=== PATIENT | female | born 1965 | race Caucasian/White ===

== ENCOUNTER 2016-12-07 12:41 | Inpatient (IN) ==
[2016-12-07] MEDS ORDERED: Ipratropium/Albuterol Neb 3 ML IH ONE (12:45)
[2016-12-07] MEDS ORDERED: methylPREDNISolone 125 MG/2 ML VIAL IVP ONE (12:45)
--- NOTE | 2016-12-07 12:48 | Emergency Department Note ---
Disposition Clinical Impression: Community acquired pneumonia, Hypoxia COPD (chronic obstructive pulmonary disease) Qualifiers: COPD type: unspecified COPD Qualified Code(s): J44.9 - Chronic obstructive pulmonary disease, unspecified Disposition: Admitted As Inpatient Condition: Fair Referrals: NO,PCP [Primary Care Provider] - Forms: ED Satisfaction Letter Time of Disposition: 14:04 SOB HPI - General Chief Complaint: ED Shortness of Breath/Dyspnea Stated Complaint: tracie Time Seen by Provider: 12/07/16 12:45 Source: patient, EMS Mode of arrival: EMS Limitations: no limitations Nursing Notes Reviewed: Yes Vital Signs Reviewed: Yes - History of Present Illness 51-year-old history COPD comes in with increasing shortness of breath. The squad members on arrival states his pulse ox was in the 80s they gave her breathing treatment and put her on a nonrebreather and she came up to the mid 90s. Pt Subjective Complaint: shortness of breath Onset (ago): day(s) Context: recent illness Severity: moderate Consistency/Duration: constant Improves with: nothing Worsens with: exertion Known history of: COPD Associated symptoms: Reports: cough, wheezing Treatment prior to arrival: oxygen, bronchodilator Cough present: Yes Cough Description: Involuntary Cough Frequency: Intermittent - Related Data Home Medications Medication Instructions Recorded Confirmed Albuterol Sulfate [Ventolin Hfa] 2 puff IH Q4H 08/03/15 08/03/15 Clopidogrel [Plavix] 75 mg PO DAILY 08/03/15 08/03/15 Fluticasone/Salmeterol [Advair 1 puff IH BID 08/03/15 08/03/15 500-50 Diskus] Lansoprazole [Prevacid] 30 mg PO DAILY 08/03/15 08/03/15 Levothyroxine Sodium [Tirosint] 50 mcg PO DAILY 08/03/15 08/03/15 Rosuvastatin [Crestor] 40 mg PO DAILY 08/03/15 08/03/15 Previous Rx's Medication Instructions Recorded Cefdinir [Omnicef] 300 mg PO BID #14 capsule 08/06/15 Cholecalciferol (Vitamin D3) 5,000 unit PO DAILY #30 capsule 08/06/15 [Dialyvite Vitamin D] Levofloxacin [Levaquin] 750 mg PO DAILY #5 tablet 08/06/15 Oxygen 2 l IN CONT 30 Days 02/17/16 Allergies Allergy/AdvReac Type Severity Reaction Status Date / Time Opioids - Morphine Analogues Allergy See Verified 12/07/16 12:48 Comments Sulfa (Sulfonamide Allergy Hives Verified 07/21/15 11:12 Antibiotics) All systems ED: reviewed and negative except as stated. Constitutional: Denies: fever, chills, weakness, weight change Eyes: Denies: eye pain, eye discharge, vision change ENT ED: Denies: ear pain, throat pain, dental pain, hearing loss, epistaxis, congestion, dysphagia Cardiovascular: Denies: chest pain, palpitations, dyspnea on exertion, edema, syncope Respiratory: Reports: cough, dyspnea, wheezes. Denies: hemoptysis, stridor Gastrointestinal: Denies: abdominal pain, nausea, vomiting, diarrhea, constipation, hematemesis, melena, hematochezia Genitourinary: Denies: dysuria, frequency, hematuria, discharge Musculoskeletal: Denies: back pain, neck pain, arthralgia, myalgia Integumentary: Denies: rash, abrasion, lesions Neurological: Denies: headache, weakness, numbness, paresthesias, confusion, abnormal gait, vertigo Psychiatric: Denies: anxiety, depression, suicidal thoughts, homicidal thoughts , auditory hallucinations, visual hallucinations Endocrine: Denies: fatigue Hematological/Lymphatic: Denies: easy bleeding, easy bruising Allergic/Immunologic: Denies: facial swelling, urticaria Past Medical History - Past Medical History Medical history: Reports: COPD, coronary artery disease, hyperlipidemia Psychiatric history: Reports: no psych history 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 - Social History Smoking Status: Former smoker Smokeless Tobacco Status: No Alcohol use: Reports: none Drug use: Reports: none Physical Exam - General Limitations: no limitations General appearance: alert, in no apparent distress - Head Head exam: atraumatic, normocephalic, normal inspection - Eye Eye exam: Present: normal appearance, PERRL, EOMI - ENT ENT exam: normal exam, normal oropharynx, mucous membranes moist - Neck Neck exam: Present: normal inspection, full ROM, trachea midline - Chest Chest inspection: Present: normal inspection, symmetric chest wall rise - Respiratory Respiratory exam: Present: respiratory distress, wheezes, accessory muscle use, prolonged expiratory phase - Cardiovascular Cardiovascular exam: Present: regular rate, normal rhythm, normal heart sounds - Abdominal Exam Abdominal exam: Present: soft, Non-Tender. Absent: tenderness, distention, guarding, rebound, rigidity - Extremities Exam Extremities exam: Present: normal inspection, full ROM. Absent: tenderness, pedal edema - Expanded Lower Extremity Exam Neurovascular/Tendon exam: Absent: motor deficit, sensory deficit, tendon deficit Gait: observed and normal - Back Exam Back exam: Present: normal inspection, full ROM. Absent: tenderness - Neurological Exam Neurological exam: Present: alert, oriented X3 - Psychiatric Psychiatric exam: Present: normal affect, normal mood - Skin Skin exam: Present: warm, dry, intact, normal color Course - Reevaluation(s) Reevaluation #1: 51-year-old comes in with cough and shortness of breath history COPD patient required several treatments steroids so to improve somewhat. Chest x-ray shows a questionable linear pneumonia. Patient will be admitted IV antibiotics treatments. Time: 14:03 - Consultations Consultation #1: Accepted by Dr. Treviño Time: 14:04 Vital Signs Temperature 98.2 F 12/07/16 12:42 Pulse Rate 109 12/07/16 12:42 Respiratory Rate 26 12/07/16 12:42 Blood Pressure 127/80 12/07/16 12:42 O2 Sat by Pulse Oximetry 93 12/07/16 12:42 Temperature 98.2 F 12/07/16 12:42 Pulse Rate 109 12/07/16 12:42 Respiratory Rate 26 12/07/16 13:18 Blood Pressure 127/80 12/07/16 12:42 O2 Sat by Pulse Oximetry 96 12/07/16 13:18 Oxygen Delivery Oxygen Delivery Nasal Cannula Shortness of Breath/Dyspnea - Lab Data Lab results reviewed: Yes I reviewed the patient's lab results. Result diagrams: 12/07/16 13:28 12/07/16 13:28 Lab Results 12/07/16 12/07/16 12/07/16 Range/Units 13:00 13:28 13:28 WBC 11.8 H (4.3-11.1) K/mcL RBC 4.23 (3.82-4.97) M/mcL Hgb 11.3 L (11.5-15.4) g/dL Hct 36.9 (35.3-44.9) % MCV 87.2 (83.0-100.0) fL MCH 26.7 L (28.0-33.3) pg MCHC 30.6 L (31.6-35.5) g/dL RDW 16.1 H (11.5-14.5) % Plt Count 336 (140-400) K/mcL MPV 10.1 (9.4-12.4) fL Immature Gran % 0.4 (0-4) % Seg Neutrophils % 78.2 % Lymphocytes % 11.0 % Monocytes % 9.8 % Eosinophils % 0.3 % Basophils % 0.3 % Neutrophils # 9.2 H (1.6-8.9) K/mcL Lymphocytes # 1.3 (0.6-4.6) K/mcL Monocytes # 1.2 (0.0-1.3) K/mcL Eosinophils # 0.0 (0.0-0.6) K/mcL Basophils # 0.0 (0.0-0.2) K/mcL ABG pH 7.40 (7.32-7.45) pH Units ABG pCO2 52 H (35-45) mmHg ABG pO2 58 L (85-104) mmHg ABG HCO3 32.2 H (21-27) mEQ/L ABG Total CO2 33.8 H (20-26) mEq/L ABG O2 Saturation 90 L (95-98) % ABG Base Excess 6.2 H (-2.0 to 3.0) mEq/L Blood Gas Modality [place] Inspired O2 32 % Sodium 138 (136-145) mEq/L Potassium 3.9 (3.5-4.5) mEq/L Chloride 100 (98-109) mEq/L Carbon Dioxide 29 (19-29) mEq/L BUN 11 (7-20) mg/dL Creatinine 0.57 (0.57-1.11) mg/dL Est GFR ( Amer) > 60 (> 60) Est GFR (Non-Af Amer) > 60 (> 60) BUN/Creatinine Ratio 19 (6-26) Glucose 115 H (70-99) mg/dL Calculated Osmolality 286 (280-300) Lactic Acid (0.5-2.2) mmol/L Calcium 9.8 (8.6-10.8) mg/dL Troponin I (0-0.03) ng/mL B-Natriuretic Peptide (0-100) pg/mL 06/20/17 06/20/17 06/20/17 Range/Units 13:28 13:28 13:28 WBC (4.3-11.1) K/mcL RBC (3.82-4.97) M/mcL Hgb (11.5-15.4) g/dL Hct (35.3-44.9) % MCV (83.0-100.0) fL MCH (28.0-33.3) pg MCHC (31.6-35.5) g/dL RDW (11.5-14.5) % Plt Count (140-400) K/mcL MPV (9.4-12.4) fL Immature Gran % (0-4) % Seg Neutrophils % % Lymphocytes % % Monocytes % % Eosinophils % % Basophils % % Neutrophils # (1.6-8.9) K/mcL Lymphocytes # (0.6-4.6) K/mcL Monocytes # (0.0-1.3) K/mcL Eosinophils # (0.0-0.6) K/mcL Basophils # (0.0-0.2) K/mcL ABG pH (7.32-7.45) pH Units ABG pCO2 (35-45) mmHg ABG pO2 (85-104) mmHg ABG HCO3 (21-27) mEQ/L ABG Total CO2 (20-26) mEq/L ABG O2 Saturation (95-98) % ABG Base Excess (-2.0 to 3.0) mEq/L Blood Gas Modality Inspired O2 % Sodium (136-145) mEq/L Potassium (3.5-4.5) mEq/L Chloride (98-109) mEq/L Carbon Dioxide (19-29) mEq/L BUN (7-20) mg/dL Creatinine (0.57-1.11) mg/dL Est GFR ( Amer) (> 60) Est GFR (Non-Af Amer) (> 60) BUN/Creatinine Ratio (6-26) Glucose (70-99) mg/dL Calculated Osmolality (280-300) Lactic Acid 1.8 (0.5-2.2) mmol/L Calcium (8.6-10.8) mg/dL Troponin I 0.01 (0-0.03) ng/mL B-Natriuretic Peptide 43 (0-100) pg/mL - Radiology Data Radiology results reviewed: Yes I reviewed the patient's radiology results. Chest X-Ray 12/07/16 12:45 IMPRESSION: 1. Severe emphysematous changes are again noted. 2. Bilateral linear infiltrates could represent pneumonia. D/ / 12/07/2016 13:41:46 Raul Isaac MD / [email or web address] Interpreting Provider: Raul Isaac MD - EKG Data EKG attestation: Yes I reviewed and interpreted this EKG. EKG shows normal: Reports: sinus rhythm Rate: Reports: tachycardia Rhythm: Reports: NSR [place]/QRS: Reports: IVCD Interpretation: Reports: no acute changes
[2016-12-07 13:05] LABS: ABG Base Excess 6.2 mEq/L (-2.0 to 3.0); ABG HCO3 32.2 mEQ/L (21-27); ABG Oxygen Saturation 90 % (95-98); ABG PCO2 52 mmHg (35-45); ABG PO2 58 mmHg (85-104); ABG TCO2 33.8 mEq/L (20-26)
[2016-12-07 13:07] LABS: Blood Gas FiO2 32 %
[2016-12-07 13:41] LABS: Basophils % 0.3 %; Eosinophils % 0.3 %; Hematocrit 36.9 % (35.3-44.9); Hemoglobin 11.3 g/dL (11.5-15.4); Immature Granulocytes % 0.4 % (0-4); Lymphocytes # 1.3 K/mcL (0.6-4.6); Mean Corpuscular HGB Conc 30.6 g/dL (31.6-35.5); Mean Corpuscular Hemoglobin 26.7 pg (28.0-33.3); Mean Corpuscular Volume 87.2 fL (83.0-100.0); Mean Platelet Volume 10.1 fL (9.4-12.4); Monocytes # 1.2 K/mcL (0.0-1.3); Monocytes % 9.8 %; Neutrophils # 9.2 K/mcL (1.6-8.9); Platelet Count 336 K/mcL (140-400); Red Blood Count 4.23 M/mcL (3.82-4.97); Red Cell Distribution Width 16.1 % (11.5-14.5); Segmented Neutrophils % 78.2 %
[2016-12-07 13:57] LABS: BUN/Creatinine Ratio 19 (6-26); Blood Urea Nitrogen 11 mg/dL (7-20); Calcium 9.8 mg/dL (8.6-10.8); Carbon Dioxide 29 mEq/L (19-29); Chloride 100 mEq/L (98-109); Glucose 115 mg/dL (70-99); Osmolality,Calculated 286 (280-300); Potassium 3.9 mEq/L (3.5-4.5); Sodium 138 mEq/L (136-145); eGFR For African Americans > 60 (> 60); eGFR For Non-African Americans > 60 (> 60)
[2016-12-07] MEDS ORDERED: Levofloxacin 750 MG/150 ML 750 MG/150 ML BAG IVPB ONE (14:00)
[2016-12-07] MEDS ORDERED: Acetaminophen 325 MG TABLET PO PRN (14:42)
[2016-12-07] MEDS ORDERED: Naloxone 0.4 MG/ML INJ IVP PRN (14:42)
[2016-12-07] MEDS ORDERED: Ipratropium/Albuterol Neb 3 ML IH PRN (14:43)
--- NOTE | 2016-12-07 16:09 | Internal Med History&Physical ---
<Juana Treviño - Last Filed: 12/07/16 18:32> Date of Encounter: 12/07/16 Time of Encounter: 15:45 Internal Medicine - H&P: HPI History of present illness: Ms. Maldonado is a 51 year old female Internal Medicine - H&P: Meds Albuterol Sulfate [Ventolin Hfa] 2 puff IH Q4H 08/03/15 [History] Clopidogrel [Plavix] 75 mg PO DAILY 08/03/15 [History] Lansoprazole [Prevacid] 30 mg PO DAILY 08/03/15 [History] Levothyroxine Sodium [Tirosint] 50 mcg PO DAILY 08/03/15 [History] Rosuvastatin [Crestor] 40 mg PO DAILY 08/03/15 [History] Cholecalciferol (Vitamin D3) [Dialyvite Vitamin D] 5,000 unit PO DAILY #30 capsule 08/06/15 [Rx] Oxygen 2 l IN CONT 30 Days 08/06/15 [Rx] Aspirin [Lo-Dose Aspirin EC] 81 mg PO DAILY 12/07/16 [History] Benzonatate [Tessalon] 100 mg PO Q4H PRN 12/07/16 [History] Enoxaparin [Lovenox] 40 mg SQ Q12HR 12/07/16 [History] Escitalopram [Lexapro] 20 mg PO DAILY 12/07/16 [History] Ipratropium/Albuterol Neb [Duoneb] 3 ml IH Q6HR 12/07/16 [History] LORazepam [Ativan] 0.5 mg PO TID 12/07/16 [History] Mometasone/Formoterol [Dulera 200 Mcg/5 Mcg Inhaler] 2 puff IH BID 12/07/16 [ History] Allergies Opioids - Morphine Analogues Allergy (Verified 12/07/16 12:48) See Comments Sulfa (Sulfonamide Antibiotics) Allergy (Verified 07/21/15 11:12) Hives All Systems PM: A 10-system review of systems was performed and is negative for pertinent findings except as documented above in the HPI. - Constitutional Vitals: Temp Pulse Resp BP Pulse Ox 97.6 F 106 18 110/70 91 12/07/16 15:22 12/07/16 15:22 12/07/16 17:26 12/07/16 15:22 12/07/16 17:26 Internal Med - H&P Results - Labs CBC & Chem 7: 12/07/16 13:28 12/07/16 17:25 Labs: BMP 12/07/16 17:25 Glucose 120 H Liver Function 12/07/16 Range/Units 17:25 Total Bilirubin 0.4 (0.2-1.2) mg/dL - Attending Attestation I examined this patient and my medical decision-making was reviewed with the nurse practitioner. I agree with the documented history of present illness, review of systems, past medical, surgical social and family histories and examination findings, disposition and treatment plan as described above except to any changes set forth below. 51-year-old female patient with history of COPD, prior PE presented to the ER with complaints of shortness of breath worsening over the past week. She had previously been diagnosed with pneumonia about 2 weeks back and completed a 10 day course with amoxicillin. She continued to feel 6 and so she came to the ER. She is on chronic home oxygen for the past year but despite that was feeling increasingly short of breath. She was treated with bronchodilators and IV Levaquin in the ER and is starting to feel better. She denies any fever or chills. She is been having productive cough with yellowish sputum. No hemoptysis. On examination, patient chest is rhonchorous, heart sounds are within normal limits, patient is tachycardic. Sepsis related to community-acquired pneumonia with possible strep pneumo/ atypical organisms: Failed outpatient treatment with amoxicillin. We will treat with IV Levaquin. O2 supplementation. Trend lactate. IV hydration. Follow cultures. High risk for complications. COPD exacerbation: Continue O2 supplementation. Treat COPD with bronchodilators and systemic steroids. Acute on chronic respiratory failure with hypoxia and hypercarbia: Treat with O2 supplementation. Treat underlying conditions. Coronary artery disease: Continue aspirin, statin, Plavix. Recent PE: Continue Lovenox. <Carter Cortez - Last Filed: 12/07/16 18:42> Date of Encounter: 12/07/16 Time of Encounter: 15:30 Assessment and Plan (1) Sepsis Current visit: Yes Status: Acute Assess: Patient presents with sepsis criteria based on HR of 109 and RR of 26. Patient' s WBCs are also 11.8 on initial blood draw. She reports she was diagnosed with pneumonia approximately 2 weeks ago by her PCP and placed on amoxicillin by mouth which she finished a 10 day round of yesterday, 12/06/16. Chest x-ray dated today (12/07/16) shows bilateral linear infiltrates which could represent pneumonia and severe emphysematous changes are again noted. Plan: Sepsis protocol to be followed IV Bolus of NS 1,000 IV fluids NS 125 ml/hr IV levaquin 750 mg daily started and to be continued while inpatient Blood/urine/sputum cultures ordered Urinalysis ordered for legionella an strep antigens Lactic acid repeated every 4 hours Continuous cardiac monitoring ordered Vital signs ordered [id number] Supplemental O2 ordered with continuous SpO2 monitoring Bilirubin ordered stat INR/APTT ordered stat Patient to be monitored closely Qualifiers: Sepsis type: Pneumococcus Qualified Code(s): A40.3 - Sepsis due to Streptococcus pneumoniae (2) Pneumonia Current visit: Yes Status: Acute Assess: Mrs. Maldonado presents with chief complaint of shortness of breath and dyspnea which she reports has been increasing over the past week patient states she was diagnosed with pneumonia approximately 2 weeks ago by her PCP and completed a 10 day regimen of amoxicillin by mouth yesterday (12/06/16). Chest x-ray dated 12/07/16 shows bilateral linear infiltrates which could represent pneumonia and severe emphysematous changes again noted. Plan: IV levaquin 750 mg daily ordered for infection coverage Blood/urine/sputum cultures ordered Urine legionella and strep antigens ordered Follow-up labs ordered Supplemental O2 ordered with continuous SPO2 monitoring DuoNebs IH ordered every 4 Monitor patient and vital signs Qualifiers: Pneumonia type: due to Pneumococcus Laterality: left Lung location: lower lobe of lung Qualified Code(s): J13 - Pneumonia due to Streptococcus pneumoniae (3) Hypoxia Current visit: Yes Status: Acute Assess: Mrs. Maldonado presents with chief complaint of shortness of breath and dyspnea which she reports has been increasing over the past week patient states she was diagnosed with pneumonia approximately 2 weeks ago by her PCP and completed a 10 day regimen of amoxicillin by mouth yesterday (12/06/16). Chest x-ray dated 12/07/16 shows bilateral linear infiltrates which could represent pneumonia and severe emphysematous changes again noted. Patient's SpO2 was in the 80's when picked up by the squad who administered a breathing treatment which increased her SpO2 to the 90's. Plan: Supplemental O2 ordered with continuous SPO2 monitoring DuoNebs IH ordered every 4 Continue patient's Tessalon Prednisone ordered Monitor patient and vital signs (4) Pulmonary embolus Current visit: Yes Status: Chronic Assess: Patient presents with blood clot in left lung which was diagnosed in October 2016. Patient reports she currently takes Lovenox shots SQ for the past 3-4 weeks. Plan: Continue Lovenox shots for therapeutic coverage Monitor patient and vital signs for signs of respiratory decline/distress Qualifiers: Pulmonary embolism type: other Chronicity: unspecified Acute cor pulmonale presence: without acute cor pulmonale Qualified Code(s): I26.99 - Other pulmonary embolism without acute cor pulmonale (5) COPD (chronic obstructive pulmonary disease) Current visit: Yes Status: Chronic Assess: Patient presents with history of chronic COPD. Plan: DuoNebs ordered Q4 PRN Predisone ordered Supplemental O2 and continuous SPO2 monitoring ordered Monitor patient and vital signs Qualifiers: COPD type: unspecified COPD Qualified Code(s): J44.9 - Chronic obstructive pulmonary disease, unspecified (6) DVT prophylaxis Current visit: Yes Status: Acute Assess: Patient to be placed on DVT prophylaxis due to admission protocol and bedrest status, as well as current PE diagnosis. Plan: Continue Lovenox 40 mg SQ BID Internal Medicine - H&P: HPI Chief complaint: SOB/Dyspnea Admitted From: Emergency Dept Plans for Post Hospital Care: Home History of present illness: Mrs. Maldonado is a 51 year old female who presents from the ED with chief complaint of shortness of breath and dyspnea which she reports has been increasing over the past week patient states she was diagnosed with pneumonia approximately 2 weeks ago by her PCP and completed a 10 day regimen of amoxicillin by mouth yesterday (12/06/16). Patient also reports she currently has a blood clot in her left lung which was diagnosed in October 2016 for which she takes Lovenox shots SQ for the past 3-4 weeks. The patient had heart catheterization [facility] in August 2016 with no stent placement and a previous heart catheterization in 2005 with 1 stent placement. Mrs. Maldonado also states she has lung cancer of the left lung which are oncologist describes as contained during her last visit. Chest x-ray dated 12/07/16 shows severe emphysematous changes again noted and bilateral linear infiltrates which could represent pneumonia. Patient currently meets sepsis criteria based on suspicion of pneumonia, white blood count of 11.8, heart rate of 109 bpm, and respiratory rate of 26. Patient's last temperature was 98.2 F. Patient is to be admitted as inpatient and is at high risk to recurrent sepsis diagnosis. Sepsis protocol be followed with lactic acid levels measured every 4 hours, blood and sputum cultures were ordered, IV Levaquin ordered at 750 mg IV piggyback daily, and urine cultures for legionella and strep antigens ordered. Patient is to be placed on continuous cardiac telemetry with supplemental O2 and continuous SPO2 monitoring ordered. Patient is falls precautions with bed rest and bathroom privileges. Time spent with patient greater than 40 minutes. Past Med Surg Social Fam HX - Past Medical History Source: patient Medical history: cancer, COPD, coronary artery disease, hyperlipidemia, myocardial infarction, pulmonary embolus Psychiatric history: no psych history - Social History Smoking Status: Former smoker Smokeless Tobacco Status: No Alcohol use: none Drug use: none Current living situation: Home, With Family Activity Level: Independent ambulation (Reports only being able to take 5-6 steps without becoming SOB or needing assistance) Recent Out of Country Travel Within the Last 8 Weeks: No Exposure or Possible Exposure to Illness During Travel: No - Family History Mother Race: Family Member Ethnicity: Non- Living Status: Still Living Hx Family Endocrine Disorder: Yes (Thyroid disease) Father Race: Family Member Ethnicity: Non- Living Status: Age at : 75 Hx Family Cardiac Disorders: Yes (HD) Hx Family Endocrine Disorder: Yes (DM) Hx Family Neurologic Disorders: Yes (Alzheimer's disease) Sister Race: Family Member Ethnicity: Non- Living Status: Still Living Hx Family Cardiac Disorders: Yes (HD) Brother Race: Family Member Ethnicity: Non- Living Status: Age at : 56 Hx Family Cardiac Disorders: Yes (bypass surgery) Hx Family Respiratory Disorders: Yes (COPD) Hx Family Cancer: Yes (squamous) All Systems PM: A 10-system review of systems was performed and is negative for pertinent findings except as documented above in the HPI. - Constitutional Constitutional: no chills, no fever(s), no night sweats - EENT Eyes: no change in vision, no discharge, no pain, no photophobia Ears: no ear discharge, no ear pain, no tinnitus Nose, mouth and throat: no dysphagia, no nasal discharge, no neck pain, no sore throat - Breasts Breasts: as per HPI - Cardiovascular Cardiovascular ROS IM: as per HPI, dyspnea, dyspnea on exertion, irregular heart rhythm (Tachycardia), orthopnea - Respiratory Respiratory: as per HPI, cough, dyspnea, chest congestion, change in phlegm color - Gastrointestinal Gastrointestinal: no abdominal pain, no diarrhea, no hematemesis, no hematochezia, no melena, no nausea, no vomiting - Genitourinary Genitourinary: no change in urinary stream, no dysuria, no flank pain, no hematuria Menstruation: as per HPI - Musculoskeletal Musculoskeletal ROS IM: no numbness, no tingling - Integumentary Integumentary IM: no rash, no unusual bruising - Neurological Neurological ROS: no confusion, no convulsions, no focal weakness, no numbness, no tingling, no tremor(s) - Psychiatric Psychiatric: as per HPI - Endocrine Endocrine IM: as per HPI - Hematologic/Lymphatic Hematologic/Lymphatic: no easy bruising - Allergic/Immunologic Allergic/Immunologic: as per HPI - Constitutional Vitals: Temp Pulse Resp BP Pulse Ox 97.6 F 106 18 110/70 91 12/07/16 15:22 12/07/16 15:22 12/07/16 15:22 12/07/16 15:22 12/07/16 15:22 General appearance: Present: cooperative, mild distress, A&O X 3, pleasant, underweight, answers questions appropriately - Head Head exam: Present: atraumatic, normocephalic - Eye Eye exam: Present: PERRL, conjuntiva pink, sclera anicteric Pupils: Present: PERRL - ENT ENT exam: Present: normal exam, normal external ear exam - Neck Neck exam general surgery: Present: supple, trachea midline. Absent: lymphadenopathy - Respiratory Respiratory exam: Present: decreased breath sounds, respiratory distress, wheezes - Cardiovascular Cardiovascular exam: Present: tachycardia - GI/Abdominal GI/Abdominal exam: Present: normal bowel sounds, soft, no peritoneal signs. Absent: distended, tenderness - Rectal Rectal exam: Present: deferred - Additional comments: exam deferred. - Extremities Exam Extremities exam: Present: warm, radial pulses palpable and symetrical. Absent : calf tenderness, cyanotic, pedal edema - Back Exam Back exam: Present: normal inspection - Neurological Exam Neurological exam: Present: CN II-XII intact, oriented X3, no focal deficits. Absent: pronater drift, facial droop, speech deficit - Psychiatric Psychiatric exam: Present: normal affect, normal mood - Skin Skin exam: Present: dry, intact Internal Med - H&P Results - Labs CBC & Chem 7: 12/07/16 13:28 12/07/16 17:25 - EKG Data EKG shows normal: sinus rhythm Rate: tachycardia - EKG Data Prior EKG available for review: no EKG comments: 12/07/16 16:59 EKG dated 12/07/16 shows sinus tachycardia with possible right atrial enlargement, possible right ventricular conduction delay, ST depression. Consider subendocardial injury. - Diagnostic Studies Chest x-ray Additional comments: Impressions Chest X-Ray 12/07/16 12:45 IMPRESSION: 1. Severe emphysematous changes are again noted. 2. Bilateral linear infiltrates could represent pneumonia. D/ / 12/07/2016 13:41:46 Raul Isaac MD / [email or web address] Interpreting Provider: Raul Isaac MD
[2016-12-07] MEDS: *HR* LORazepam 0.5 MG TABLET PO SCH ×2 (16:12→22:23)
[2016-12-07] MEDS: methylPREDNISolone 125 MG/2 ML VIAL IVP SCH (16:20)
[2016-12-07 16:34] LABS: Hemoglobin A1C 5.4 %
[2016-12-07] MEDS: *HR* Enoxaparin 40 MG/0.4 ML SYRINGE SQ SCH (16:54)
[2016-12-07] MEDS: Ipratropium/Albuterol Neb 3 ML IH SCH ×3 (17:25→23:21)
[2016-12-07 17:40] LABS: INR 1.4; Prothrombin Time 14.8 Seconds (9.4-12.1)
[2016-12-07 17:42] LABS: Activated Partial Thrombo Time 40.2 Seconds (26.0-36.0)
[2016-12-07 17:49] LABS: Chol/HDL Ratio 2.7 (0-4.9)
[2016-12-07] MEDS ORDERED: *HR* Heparin 5,000 UNIT/ML VIAL SQ SCH (18:00)
[2016-12-07] MEDS ORDERED: Ipratropium/Albuterol Neb 3 ML IH SCH (18:00)
[2016-12-07] MEDS ORDERED: 0.9 % Sodium Chloride 1,000 ML IVC ONE ×2 (18:03→18:30)
[2016-12-07] MEDS ORDERED: 0.9 % Sodium Chloride 1,000 ML IVC SCH (18:15)
--- NOTE | 2016-12-07 18:40 | Electrocardiograph Report ---
[address] [place], [place] [address] Test Date: 2016-12-07 Pat Name: [facility] Department: 105 Room: 2A31 Gender: F Filler Picker: : [id number] Requested By: Eber Rodriguez Order Number: [id number] Reading MD: Naomie Marshall Measurements Intervals [place] Rate: 109 P: 77 NV: 167 QRS: 89 QRSD: 75 T: 105 QT: 288 QTc: 352 Interpretive Statements SINUS TACHYCARDIA POSSIBLE RIGHT ATRIAL ENLARGEMENT [0.25mV P WAVE] POSSIBLE RIGHT VENTRICULAR CONDUCTION DELAY [RSR (QR) IN V1/V2] ST DEPRESSION, CONSIDER SUBENDOCARDIAL INJURY [0.1+ mV ST DEPRESSION] WARNING: DATA QUALITY MAY AFFECT INTERPRETATION Baseline artifact I, aVL not suitable for interpretation, suggest repeat tracing Electronically Signed On 12-07-2016 18:39:35 EDT by Naomie Marshall
[2016-12-07] MEDS: 0.9 % Sodium Chloride 1,000 ML IVC SCH (20:08)
[2016-12-07 22:28] LABS: Basophils % 0.1 %; Hematocrit 35.2 % (35.3-44.9); Hemoglobin 10.6 g/dL (11.5-15.4); Immature Granulocytes % 0.5 % (0-4); Lymphocytes # 0.3 K/mcL (0.6-4.6); Lymphocytes % 2.8 %; Mean Corpuscular HGB Conc 30.1 g/dL (31.6-35.5); Mean Corpuscular Volume 89.6 fL (83.0-100.0); Mean Platelet Volume 9.7 fL (9.4-12.4); Monocytes # 0.2 K/mcL (0.0-1.3); Monocytes % 2.1 %; Neutrophils # 9.7 K/mcL (1.6-8.9); Platelet Count 300 K/mcL (140-400); Red Blood Count 3.93 M/mcL (3.82-4.97); Red Cell Distribution Width 15.9 % (11.5-14.5); Segmented Neutrophils % 94.5 %
[2016-12-08] MEDS: methylPREDNISolone 125 MG/2 ML VIAL IVP SCH ×3 (02:37→14:44)
[2016-12-08] MEDS: 0.9 % Sodium Chloride 1,000 ML IVC SCH ×2 (02:37→11:41)
[2016-12-08] MEDS: Ipratropium/Albuterol Neb 3 ML IH SCH ×6 (04:13→23:17)
[2016-12-08 05:52] LABS: Hematocrit 30.8 % (35.3-44.9); Hemoglobin 9.4 g/dL (11.5-15.4); Immature Granulocytes % 0.6 % (0-4); Lymphocytes # 0.3 K/mcL (0.6-4.6); Lymphocytes % 3.5 %; Mean Corpuscular HGB Conc 30.5 g/dL (31.6-35.5); Mean Corpuscular Hemoglobin 26.6 pg (28.0-33.3); Mean Platelet Volume 9.7 fL (9.4-12.4); Monocytes # 0.2 K/mcL (0.0-1.3); Monocytes % 1.9 %; Neutrophils # 7.8 K/mcL (1.6-8.9); Platelet Count 269 K/mcL (140-400); Red Blood Count 3.54 M/mcL (3.82-4.97); Red Cell Distribution Width 15.9 % (11.5-14.5)
[2016-12-08 06:04] LABS: BUN/Creatinine Ratio 17 (6-26); Blood Urea Nitrogen 9 mg/dL (7-20); Carbon Dioxide 28 mEq/L (19-29); Chloride 107 mEq/L (98-109); Glucose 149 mg/dL (70-99); Magnesium 1.3 mg/dL (1.6-2.6); Osmolality,Calculated 291 (280-300); Potassium 4.2 mEq/L (3.5-4.5); Sodium 140 mEq/L (136-145); eGFR For African Americans > 60 (> 60); eGFR For Non-African Americans > 60 (> 60)
[2016-12-08] MEDS: *HR* Enoxaparin 40 MG/0.4 ML SYRINGE SQ SCH ×2 (06:35→16:51)
[2016-12-08] MEDS: Budesonide/Formoterol 160/4.5 MDI IH SCH ×2 (08:59→19:47)
[2016-12-08] MEDS: *HR* LORazepam 0.5 MG TABLET PO SCH ×3 (09:20→20:47)
[2016-12-08] MEDS: Aspirin Enteric Coated 81 MG Tablet PO SCH (09:20)
[2016-12-08] MEDS ORDERED: Magnesium Sulfate 2 GM in D5% in Water 100 ML IVPB ONE ×2 (10:00→17:43)
[2016-12-08 10:04] LABS: Bilirubin,Urine Negative (Negative); Blood,Urine Negative (Negative); Clarity,Urine Clear (Clear); Color,Urine Yellow (Yellow); Glucose,Urine (UA) Normal (Normal); Ketones,Urine Negative (Negative); Leukocyte Esterase,Urine Negative (Negative); Nitrite,Urine Negative (Negative); Protein,Urine Negative (Neg-Trace); Specific Gravity,Urine 1.016 (1.010-1.025); Urobilinogen,Urine Normal (Normal)
[2016-12-08] MEDS: Levofloxacin 750 MG/150 ML 750 MG/150 ML BAG IVPB SCH (14:44)
--- NOTE | 2016-12-08 17:52 | Internal Med Progress Note ---
Date of Encounter: 12/08/16 Time of Encounter: 17:50 - Assessment and plan (1) COPD with acute exacerbation Current Visit: Yes Status: Acute Assessment and plan: On duo nebs and IV steroids (2) Hypomagnesemia Current Visit: Yes Status: Acute Assessment and plan: Supplemented rechecked tomorrow (3) Community acquired pneumonia Current Visit: Yes Status: Acute Assessment and plan: On IV Levaquin and follow white cell count and clinically (4) Sepsis Current Visit: Yes Status: Acute Qualifiers: Sepsis type: Pneumococcus Qualified Code(s): A40.3 - Sepsis due to Streptococcus pneumoniae - Subjective Interval history: Mrs. Char mcclain is a 51-year-old female admitted with SIRS, COPD exacerbation , and pneumonia which failed outpatient treatment with amoxicillin. She is currently on IV Levaquin and IV steroid med nebs and IV fluid. LSR she seems quite stable and admits that she has been improving. - Constitutional Vitals: Temp Pulse Resp BP Pulse Ox 98.0 F 84 18 121/80 96 12/08/16 15:14 12/08/16 15:14 12/08/16 10:36 12/08/16 15:14 12/08/16 15:14 General appearance: Present: cooperative, mild distress, A&O X 3, pleasant, underweight, answers questions appropriately - Head Head exam: Present: atraumatic, normocephalic - Eye Eye exam: Present: PERRL, conjuntiva pink, sclera anicteric Pupils: Present: PERRL - Neck Neck exam general surgery: Present: supple, trachea midline. Absent: lymphadenopathy - Respiratory Respiratory exam: Present: decreased breath sounds, prolonged expiratory phase, wheezes. Absent: accessory muscle use, rales - Cardiovascular Cardiovascular exam: Present: RRR, +S1, +S2. Absent: diastolic murmur, gallop, rubs, systolic murmur - GI/Abdominal GI/Abdominal exam: Present: normal bowel sounds, soft, no peritoneal signs. Absent: distended, tenderness - Extremities Exam Extremities exam: Present: warm, radial pulses palpable and symetrical. Absent : calf tenderness, cyanotic, pedal edema - Neurological Exam Neurological exam: Present: CN II-XII intact, oriented X3, no focal deficits. Absent: pronater drift, facial droop, speech deficit - Skin Skin exam: Present: dry, intact Internal Medicine: Result - Labs CBC & Chem 7: 12/08/16 05:38 12/08/16 05:38 Labs: Short CBC 12/07/16 12/08/16 Range/Units 22:19 05:38 WBC 10.2 8.3 (4.3-11.1) K/mcL Hgb 10.6 L 9.4 L (11.5-15.4) g/dL Hct 35.2 L 30.8 L (35.3-44.9) % Plt Count 300 269 (140-400) K/mcL Neutrophils # 9.7 H 7.8 (1.6-8.9) K/mcL BMP 12/08/16 05:38 Sodium 140 Potassium 4.2 Chloride 107 Carbon Dioxide 28 BUN 9 Creatinine 0.52 L Glucose 149 H Calcium 9.0 Urine 12/08/16 Range/Units 09:46 Urine Color Yellow (Yellow) Urine Clarity Clear (Clear) Urine pH 6.0 (5.0-8.0) pH Units Ur Specific [place] 1.016 (1.010-1.025) Urine Protein Negative (Neg-Trace) mg/dL Urine Glucose (UA) Normal (Normal) mg/dL - ABG Interpretation ABG results: ABG ABG pH 7.40 pH Units (7.32-7.45) 12/07/16 13:00 ABG pCO2 52 mmHg (35-45) H 12/07/16 13:00 ABG pO2 58 mmHg (85-104) L 12/07/16 13:00 ABG O2 Saturation 90 % (95-98) L 12/07/16 13:00 PT/INR, D-dimer PT 14.8 Seconds (9.4-12.1) H 12/07/16 13:23 Consult Discharge Plan - Plan Referrals: NO,PCP [Primary Care Provider] -
[2016-12-09] MEDS: methylPREDNISolone 125 MG/2 ML VIAL IVP SCH ×4 (03:27→23:35)
[2016-12-09] MEDS: Ipratropium/Albuterol Neb 3 ML IH SCH ×6 (04:08→23:34)
[2016-12-09 06:15] LABS: Hemoglobin 9.5 g/dL (11.5-15.4); INR 1.2; Immature Granulocytes % 0.6 % (0-4); Lymphocytes # 0.3 K/mcL (0.6-4.6); Lymphocytes % 2.8 %; Mean Corpuscular HGB Conc 30.6 g/dL (31.6-35.5); Mean Corpuscular Hemoglobin 27.6 pg (28.0-33.3); Mean Corpuscular Volume 90.1 fL (83.0-100.0); Mean Platelet Volume 10.5 fL (9.4-12.4); Monocytes # 0.5 K/mcL (0.0-1.3); Monocytes % 4.2 %; Neutrophils # 11.2 K/mcL (1.6-8.9); Platelet Count 297 K/mcL (140-400); Prothrombin Time 13.2 Seconds (9.4-12.1); Red Blood Count 3.44 M/mcL (3.82-4.97); Segmented Neutrophils % 92.4 %
[2016-12-09] MEDS: *HR* Enoxaparin 40 MG/0.4 ML SYRINGE SQ SCH ×2 (06:26→17:19)
[2016-12-09 06:39] LABS: Alanine Aminotransferase 31 Units/L (0-55); Albumin 2.4 g/dL (3.5-5.0); Albumin/Globulin Ratio 0.6 (1.1-2.2); Alkaline Phosphatase 75 Units/L (38-126); Aspartate Amino Transferase 30 Units/L (5-34); BUN/Creatinine Ratio 22 (6-26); Bilirubin,Total 0.1 mg/dL (0.2-1.2); Blood Urea Nitrogen 13 mg/dL (7-20); Calcium 8.9 mg/dL (8.6-10.8); Carbon Dioxide 28 mEq/L (19-29); Chloride 107 mEq/L (98-109); Globulin 3.9 g/dL (2.4-3.5); Glucose 121 mg/dL (70-99); Magnesium 2.1 mg/dL (1.6-2.6); Osmolality,Calculated 295 (280-300); Potassium 4.2 mEq/L (3.5-4.5); Sodium 142 mEq/L (136-145); Total Protein 6.3 g/dL (6.0-8.3); eGFR For African Americans > 60 (> 60); eGFR For Non-African Americans > 60 (> 60)
[2016-12-09] MEDS: Aspirin Enteric Coated 81 MG Tablet PO SCH (08:46)
[2016-12-09] MEDS: *HR* LORazepam 0.5 MG TABLET PO SCH ×3 (08:46→21:14)
[2016-12-09] MEDS: Budesonide/Formoterol 160/4.5 MDI IH SCH ×3 (10:06→20:17)
--- NOTE | 2016-12-09 11:19 | Internal Med Progress Note ---
Date of Encounter: 12/09/16 Time of Encounter: 11: - Assessment and plan (1) COPD with acute exacerbation Current Visit: Yes Status: Acute (2) Hypomagnesemia Current Visit: Yes Status: Acute (3) Community acquired pneumonia Current Visit: Yes Status: Acute (4) Sepsis Current Visit: Yes Status: Acute Qualifiers: Sepsis type: Pneumococcus Qualified Code(s): A40.3 - Sepsis due to Streptococcus pneumoniae - Subjective Interval history: Mrs. Char mcclain is a 51-year-old female admitted with SIRS, COPD exacerbation , and pneumonia which failed outpatient treatment with amoxicillin. She is currently on IV Levaquin and IV steroid med nebs and IV fluid. LSR she seems quite stable and admits that she has been improving. 12/09 patient feels better and can breathe better. She is on 5-1/2 L which is what she uses at home. Sputum culture showed Pseudomonas is sensitive to Levaquin. Continue current treatment. Jolene corrected and now it is 2.1. - Constitutional Vitals: Temp Pulse Resp BP Pulse Ox 98.2 F 81 16 105/68 99 12/09/16 07:45 12/09/16 07:45 12/09/16 07:45 12/09/16 07:45 12/09/16 09:08 General appearance: Present: cooperative, mild distress, A&O X 3, pleasant, underweight, answers questions appropriately - Head Head exam: Present: atraumatic, normocephalic - Eye Eye exam: Present: PERRL, conjuntiva pink, sclera anicteric Pupils: Present: PERRL - Neck Neck exam general surgery: Present: supple, trachea midline. Absent: lymphadenopathy - Respiratory Respiratory exam: Present: decreased breath sounds, prolonged expiratory phase, rhonchi, wheezes. Absent: accessory muscle use, rales Additional comments: Bilateral diffuse wheezing and rhonchi but overall breath sounds sounds better and I think there it would be a time to add some Mucinex as she seems to have a lot of secretions - Cardiovascular Cardiovascular exam: Present: RRR, +S1, +S2. Absent: diastolic murmur, gallop, rubs, systolic murmur - GI/Abdominal GI/Abdominal exam: Present: normal bowel sounds, soft, no peritoneal signs. Absent: distended, tenderness - Extremities Exam Extremities exam: Present: warm, radial pulses palpable and symetrical. Absent : calf tenderness, cyanotic, pedal edema - Neurological Exam Neurological exam: Present: CN II-XII intact, oriented X3, no focal deficits. Absent: pronater drift, facial droop, speech deficit - Skin Skin exam: Present: dry, intact Internal Medicine: Result - Labs CBC & Chem 7: 12/09/16 05:26 12/09/16 05:26 Labs: Short CBC 12/09/16 Range/Units 05:26 WBC 12.1 H (4.3-11.1) K/mcL Hgb 9.5 L (11.5-15.4) g/dL Hct 31.0 L (35.3-44.9) % Plt Count 297 (140-400) K/mcL Neutrophils # 11.2 H (1.6-8.9) K/mcL BMP 12/09/16 05:26 Sodium 142 Potassium 4.2 Chloride 107 Carbon Dioxide 28 BUN 13 Creatinine 0.58 Glucose 121 H Calcium 8.9 Liver Function 12/09/16 Range/Units 05:26 Total Bilirubin 0.1 L (0.2-1.2) mg/dL AST 30 (5-34) Units/L ALT 31 (0-55) Units/L Alkaline Phosphatase 75 (38-126) Units/L Albumin 2.4 L (3.5-5.0) g/dL - ABG Interpretation ABG results: ABG ABG pH 7.40 pH Units (7.32-7.45) 12/07/16 13:00 ABG pCO2 52 mmHg (35-45) H 12/07/16 13:00 ABG pO2 58 mmHg (85-104) L 12/07/16 13:00 ABG O2 Saturation 90 % (95-98) L 12/07/16 13:00 PT/INR, D-dimer PT 13.2 Seconds (9.4-12.1) H 12/09/16 05:26 Consult Discharge Plan - Plan Referrals: NO,PCP [Primary Care Provider] -
[2016-12-09] MEDS: Levofloxacin 750 MG/150 ML 750 MG/150 ML BAG IVPB SCH (14:17)
[2016-12-09] MEDS: Fluticasone Propionate Nasal 50 MCG/SPRAY BOTTLE NS SCH ×2 (15:53→21:15)
[2016-12-10] MEDS: Ipratropium/Albuterol Neb 3 ML IH SCH ×6 (03:57→23:19)
[2016-12-10] MEDS: *HR* Enoxaparin 40 MG/0.4 ML SYRINGE SQ SCH ×2 (05:33→17:24)
[2016-12-10] MEDS: Benzonatate 100 MG CAPSULE PO PRN ×2 (05:33→21:25)
[2016-12-10] MEDS: Budesonide/Formoterol 160/4.5 MDI IH SCH ×2 (07:28→19:36)
[2016-12-10 08:00] LABS: Basophils % 0.1 %; Hematocrit 32.4 % (35.3-44.9); Hemoglobin 9.7 g/dL (11.5-15.4); Immature Granulocytes % 0.5 % (0-4); Lymphocytes # 0.5 K/mcL (0.6-4.6); Lymphocytes % 4.4 %; Mean Corpuscular HGB Conc 29.9 g/dL (31.6-35.5); Mean Corpuscular Hemoglobin 27.1 pg (28.0-33.3); Mean Corpuscular Volume 90.5 fL (83.0-100.0); Mean Platelet Volume 10.4 fL (9.4-12.4); Monocytes # 0.6 K/mcL (0.0-1.3); Monocytes % 5.6 %; Neutrophils # 9.8 K/mcL (1.6-8.9); Platelet Count 316 K/mcL (140-400); Red Blood Count 3.58 M/mcL (3.82-4.97); Red Cell Distribution Width 16.3 % (11.5-14.5); Segmented Neutrophils % 89.4 %
[2016-12-10 08:19] LABS: Alanine Aminotransferase 39 Units/L (0-55); Albumin 2.5 g/dL (3.5-5.0); Albumin/Globulin Ratio 0.7 (1.1-2.2); Alkaline Phosphatase 72 Units/L (38-126); Aspartate Amino Transferase 31 Units/L (5-34); BUN/Creatinine Ratio 24 (6-26); Bilirubin,Total 0.2 mg/dL (0.2-1.2); Blood Urea Nitrogen 14 mg/dL (7-20); Calcium 9.1 mg/dL (8.6-10.8); Carbon Dioxide 34 mEq/L (19-29); Chloride 102 mEq/L (98-109); Globulin 3.8 g/dL (2.4-3.5); Glucose 115 mg/dL (70-99); Magnesium 1.7 mg/dL (1.6-2.6); Osmolality,Calculated 295 (280-300); Potassium 4.3 mEq/L (3.5-4.5); Sodium 142 mEq/L (136-145); Total Protein 6.3 g/dL (6.0-8.3); eGFR For African Americans > 60 (> 60); eGFR For Non-African Americans > 60 (> 60)
[2016-12-10 08:21] LABS: INR 1.2; Prothrombin Time 12.9 Seconds (9.4-12.1)
[2016-12-10] MEDS: Aspirin Enteric Coated 81 MG Tablet PO SCH (08:58)
[2016-12-10] MEDS: *HR* LORazepam 0.5 MG TABLET PO SCH ×3 (08:58→21:25)
[2016-12-10] MEDS: methylPREDNISolone 125 MG/2 ML VIAL IVP SCH ×2 (08:59→17:13)
[2016-12-10] MEDS: Fluticasone Propionate Nasal 50 MCG/SPRAY BOTTLE NS SCH ×2 (08:59→21:25)
--- NOTE | 2016-12-10 15:49 | Internal Med Progress Note ---
Date of Encounter: 12/10/16 Time of Encounter: 15:47 - Assessment and plan (1) COPD with acute exacerbation Current Visit: Yes Status: Acute (2) Hypomagnesemia Current Visit: Yes Status: Acute (3) Community acquired pneumonia Current Visit: Yes Status: Acute (4) Sepsis Current Visit: Yes Status: Acute Qualifiers: Sepsis type: Pneumococcus Qualified Code(s): A40.3 - Sepsis due to Streptococcus pneumoniae - Subjective Interval history: Mrs. hCar mcclain is a 51-year-old female admitted with SIRS, COPD exacerbation , and pneumonia which failed outpatient treatment with amoxicillin. She is currently on IV Levaquin and IV steroid med nebs and IV fluid. LSR she seems quite stable and admits that she has been improving. 12/09 patient feels better and can breathe better. She is on 5-1/2 L which is what she uses at home. Sputum culture showed Pseudomonas is sensitive to Levaquin. Continue current treatment. Jolene corrected and now it is 2.1. 12/10 No significant difference in her condition. She becomes dyspneic with few steps. Continue current treatment. - Constitutional Vitals: Temp Pulse Resp BP Pulse Ox 98.1 F 98 18 116/70 89 12/10/16 15:19 12/10/16 15:19 12/10/16 15:19 12/10/16 15:19 12/10/16 15:19 General appearance: Present: cooperative, mild distress, A&O X 3, pleasant, underweight, answers questions appropriately - Head Head exam: Present: atraumatic, normocephalic - Eye Eye exam: Present: PERRL, conjuntiva pink, sclera anicteric Pupils: Present: PERRL - Neck Neck exam general surgery: Present: supple, trachea midline. Absent: lymphadenopathy - Respiratory Respiratory exam: Present: decreased breath sounds, rhonchi, wheezes. Absent: accessory muscle use, rales - Cardiovascular Cardiovascular exam: Present: RRR, +S1, +S2. Absent: diastolic murmur, gallop, rubs, systolic murmur - GI/Abdominal GI/Abdominal exam: Present: normal bowel sounds, soft, no peritoneal signs. Absent: distended, tenderness - Extremities Exam Extremities exam: Present: warm, radial pulses palpable and symetrical. Absent : calf tenderness, cyanotic, pedal edema - Neurological Exam Neurological exam: Present: CN II-XII intact, oriented X3, no focal deficits. Absent: pronater drift, facial droop, speech deficit - Skin Skin exam: Present: dry, intact Internal Medicine: Result - Labs CBC & Chem 7: 12/10/16 06:52 12/10/16 06:52 Labs: Short CBC 12/10/16 Range/Units 06:52 WBC 11.0 (4.3-11.1) K/mcL Hgb 9.7 L (11.5-15.4) g/dL Hct 32.4 L (35.3-44.9) % Plt Count 316 (140-400) K/mcL Neutrophils # 9.8 H (1.6-8.9) K/mcL BMP 12/10/16 06:52 Sodium 142 Potassium 4.3 Chloride 102 Carbon Dioxide 34 H BUN 14 Creatinine 0.59 Glucose 115 H Calcium 9.1 Liver Function 12/10/16 Range/Units 06:52 Total Bilirubin 0.2 (0.2-1.2) mg/dL AST 31 (5-34) Units/L ALT 39 (0-55) Units/L Alkaline Phosphatase 72 (38-126) Units/L Albumin 2.5 L (3.5-5.0) g/dL - ABG Interpretation ABG results: ABG ABG pH 7.40 pH Units (7.32-7.45) 12/07/16 13:00 ABG pCO2 52 mmHg (35-45) H 12/07/16 13:00 ABG pO2 58 mmHg (85-104) L 12/07/16 13:00 ABG O2 Saturation 90 % (95-98) L 12/07/16 13:00 PT/INR, D-dimer PT 12.9 Seconds (9.4-12.1) H 12/10/16 06:52 Consult Discharge Plan - Plan Referrals: Charli Zamudio DO [Non-Partnered Physician] - (Pt states she sees Dr. Zamudio at [facility]) NO,PCP [Primary Care Provider] -
[2016-12-10] MEDS: Levofloxacin 750 MG/150 ML 750 MG/150 ML BAG IVPB SCH (17:21)
[2016-12-11] MEDS: methylPREDNISolone 125 MG/2 ML VIAL IVP SCH ×3 (01:02→15:08)
[2016-12-11 02:36] LABS: Hematocrit 32.7 % (35.3-44.9); Hemoglobin 9.7 g/dL (11.5-15.4); Immature Granulocytes % 0.5 % (0-4); Lymphocytes # 0.9 K/mcL (0.6-4.6); Lymphocytes % 9.9 %; Mean Corpuscular HGB Conc 29.7 g/dL (31.6-35.5); Mean Corpuscular Hemoglobin 26.7 pg (28.0-33.3); Mean Corpuscular Volume 90.1 fL (83.0-100.0); Mean Platelet Volume 9.9 fL (9.4-12.4); Monocytes # 0.7 K/mcL (0.0-1.3); Monocytes % 8.6 %; Platelet Count 313 K/mcL (140-400); Red Blood Count 3.63 M/mcL (3.82-4.97); Red Cell Distribution Width 15.9 % (11.5-14.5)
[2016-12-11 02:39] LABS: INR 1.2; Prothrombin Time 13.3 Seconds (9.4-12.1)
[2016-12-11 02:48] LABS: Alanine Aminotransferase 36 Units/L (0-55); Albumin 2.5 g/dL (3.5-5.0); Albumin/Globulin Ratio 0.7 (1.1-2.2); Alkaline Phosphatase 67 Units/L (38-126); Aspartate Amino Transferase 20 Units/L (5-34); BUN/Creatinine Ratio 19 (6-26); Bilirubin,Total 0.3 mg/dL (0.2-1.2); Blood Urea Nitrogen 12 mg/dL (7-20); Calcium 9.2 mg/dL (8.6-10.8); Carbon Dioxide 36 mEq/L (19-29); Chloride 99 mEq/L (98-109); Globulin 3.7 g/dL (2.4-3.5); Glucose 100 mg/dL (70-99); Magnesium 1.8 mg/dL (1.6-2.6); Osmolality,Calculated 292 (280-300); Potassium 4.4 mEq/L (3.5-4.5); Sodium 141 mEq/L (136-145); Total Protein 6.2 g/dL (6.0-8.3); eGFR For African Americans > 60 (> 60); eGFR For Non-African Americans > 60 (> 60)
[2016-12-11] MEDS: Ipratropium/Albuterol Neb 3 ML IH SCH ×6 (03:51→23:13)
[2016-12-11] MEDS: *HR* Enoxaparin 40 MG/0.4 ML SYRINGE SQ SCH ×2 (06:03→17:46)
[2016-12-11] MEDS: Budesonide/Formoterol 160/4.5 MDI IH SCH ×2 (07:30→19:42)
[2016-12-11] MEDS: Aspirin Enteric Coated 81 MG Tablet PO SCH (08:21)
[2016-12-11] MEDS: *HR* LORazepam 0.5 MG TABLET PO SCH ×3 (08:21→20:54)
[2016-12-11] MEDS: Fluticasone Propionate Nasal 50 MCG/SPRAY BOTTLE NS SCH ×2 (08:22→20:55)
--- NOTE | 2016-12-11 15:10 | Internal Med Progress Note ---
Date of Encounter: 12/11/16 Time of Encounter: 15:09 - Assessment and plan (1) COPD with acute exacerbation Current Visit: Yes Status: Acute (2) Hypomagnesemia Current Visit: Yes Status: Acute (3) Community acquired pneumonia Current Visit: Yes Status: Acute (4) Sepsis Current Visit: Yes Status: Acute Qualifiers: Sepsis type: Pneumococcus Qualified Code(s): A40.3 - Sepsis due to Streptococcus pneumoniae - Subjective Interval history: Mrs. Char mcclain is a 51-year-old female admitted with SIRS, COPD exacerbation , and pneumonia which failed outpatient treatment with amoxicillin. She is currently on IV Levaquin and IV steroid med nebs and IV fluid. LSR she seems quite stable and admits that she has been improving. 12/09 patient feels better and can breathe better. She is on 5-1/2 L which is what she uses at home. Sputum culture showed Pseudomonas is sensitive to Levaquin. Continue current treatment. Jolene corrected and now it is 2.1. 12/10 No significant difference in her condition. She becomes dyspneic with few steps. Continue current treatment. 12/11 increased rhonchi decreased wheezing encouraged to expectorate she is already on Mucinex overall breath sounds have improved and she is slowly improving. - Constitutional Vitals: Temp Pulse Resp BP Pulse Ox 98.1 F 96 18 113/71 94 12/11/16 08:24 12/11/16 08:24 12/11/16 11:09 12/11/16 08:24 12/11/16 11:09 General appearance: Present: cooperative, mild distress, A&O X 3, pleasant, underweight, answers questions appropriately - Head Head exam: Present: atraumatic, normocephalic - Eye Eye exam: Present: PERRL, conjuntiva pink, sclera anicteric Pupils: Present: PERRL - Neck Neck exam general surgery: Present: supple, trachea midline. Absent: lymphadenopathy - Respiratory Respiratory exam: Present: decreased breath sounds, rhonchi, wheezes. Absent: accessory muscle use, rales Additional comments: decreased breath sounds, rhonchi, wheezes. Absent: accessory muscle use, rales - Cardiovascular Cardiovascular exam: Present: RRR, +S1, +S2. Absent: diastolic murmur, gallop, rubs, systolic murmur - GI/Abdominal GI/Abdominal exam: Present: normal bowel sounds, soft, no peritoneal signs. Absent: distended, tenderness - Extremities Exam Extremities exam: Present: warm, radial pulses palpable and symetrical. Absent : calf tenderness, cyanotic, pedal edema - Neurological Exam Neurological exam: Present: CN II-XII intact, oriented X3, no focal deficits. Absent: pronater drift, facial droop, speech deficit - Skin Skin exam: Present: dry, intact Internal Medicine: Result - Labs CBC & Chem 7: 12/11/16 01:59 12/11/16 01:59 Labs: Short CBC 12/11/16 Range/Units 01:59 WBC 8.6 (4.3-11.1) K/mcL Hgb 9.7 L (11.5-15.4) g/dL Hct 32.7 L (35.3-44.9) % Plt Count 313 (140-400) K/mcL Neutrophils # 7.0 (1.6-8.9) K/mcL BMP 12/11/16 01:59 Sodium 141 Potassium 4.4 Chloride 99 Carbon Dioxide 36 H BUN 12 Creatinine 0.62 Glucose 100 H Calcium 9.2 Liver Function 12/11/16 Range/Units 01:59 Total Bilirubin 0.3 (0.2-1.2) mg/dL AST 20 (5-34) Units/L ALT 36 (0-55) Units/L Alkaline Phosphatase 67 (38-126) Units/L Albumin 2.5 L (3.5-5.0) g/dL - ABG Interpretation ABG results: ABG ABG pH 7.40 pH Units (7.32-7.45) 12/07/16 13:00 ABG pCO2 52 mmHg (35-45) H 12/07/16 13:00 ABG pO2 58 mmHg (85-104) L 12/07/16 13:00 ABG O2 Saturation 90 % (95-98) L 12/07/16 13:00 PT/INR, D-dimer PT 13.3 Seconds (9.4-12.1) H 12/11/16 01:59 Consult Discharge Plan - Plan Referrals: Charli Zamudio DO [Non-Partnered Physician] - (Pt states she sees Dr. Zamudio at [facility]) NO,PCP [Primary Care Provider] -
[2016-12-11] MEDS: levoFLOXacin 750 MG TABLET PO SCH (17:46)
[2016-12-12] MEDS: methylPREDNISolone 125 MG/2 ML VIAL IVP SCH ×3 (00:45→16:37)
[2016-12-12] MEDS: Ipratropium/Albuterol Neb 3 ML IH SCH ×6 (04:15→23:15)
[2016-12-12] MEDS: *HR* Enoxaparin 40 MG/0.4 ML SYRINGE SQ SCH ×2 (06:28→18:04)
[2016-12-12] MEDS: Budesonide/Formoterol 160/4.5 MDI IH SCH ×2 (07:17→20:33)
[2016-12-12] MEDS: *HR* LORazepam 0.5 MG TABLET PO SCH ×3 (09:18→21:36)
[2016-12-12] MEDS: Aspirin Enteric Coated 81 MG Tablet PO SCH (09:18)
[2016-12-12] MEDS: Fluticasone Propionate Nasal 50 MCG/SPRAY BOTTLE NS SCH ×2 (09:19→21:37)
--- NOTE | 2016-12-12 14:37 | Internal Med Progress Note ---
Date of Encounter: 12/12/16 Time of Encounter: 18:55 - Assessment and plan (1) COPD with acute exacerbation Current Visit: Yes Status: Acute (2) Hypomagnesemia Current Visit: Yes Status: Acute (3) Community acquired pneumonia Current Visit: Yes Status: Acute (4) Sepsis Current Visit: Yes Status: Acute Qualifiers: Sepsis type: Pneumococcus Qualified Code(s): A40.3 - Sepsis due to Streptococcus pneumoniae - Subjective Interval history: Mrs. Char mcclain is a 51-year-old female admitted with SIRS, COPD exacerbation , and pneumonia which failed outpatient treatment with amoxicillin. She is currently on IV Levaquin and IV steroid med nebs and IV fluid. LSR she seems quite stable and admits that she has been improving. 12/09 patient feels better and can breathe better. She is on 5-1/2 L which is what she uses at home. Sputum culture showed Pseudomonas is sensitive to Levaquin. Continue current treatment. Jolene corrected and now it is 2.1. 12/10 No significant difference in her condition. She becomes dyspneic with few steps. Continue current treatment. 12/11 increased rhonchi decreased wheezing encouraged to expectorate she is already on Mucinex overall breath sounds have improved and she is slowly improving. 12/12 patient has improved plan to taper his steroids from tomorrow - Constitutional Vitals: Temp Pulse Resp BP Pulse Ox 98.5 F 103 18 115/77 87 12/12/16 12:22 12/12/16 12:22 12/12/16 12:22 12/12/16 12:12/12/16 11:16 General appearance: Present: cooperative, mild distress, A&O X 3, pleasant, underweight, answers questions appropriately - Head Head exam: Present: atraumatic, normocephalic - Eye Eye exam: Present: PERRL, conjuntiva pink, sclera anicteric Pupils: Present: PERRL - Neck Neck exam general surgery: Present: supple, trachea midline. Absent: lymphadenopathy - Respiratory Respiratory exam: Present: CTAB, wheezes. Absent: accessory muscle use, rales, rhonchi - Cardiovascular Cardiovascular exam: Present: RRR, +S1, +S2. Absent: diastolic murmur, gallop, rubs, systolic murmur - GI/Abdominal GI/Abdominal exam: Present: normal bowel sounds, soft, no peritoneal signs. Absent: distended, tenderness - Extremities Exam Extremities exam: Present: warm, radial pulses palpable and symetrical. Absent : calf tenderness, cyanotic, pedal edema - Neurological Exam Neurological exam: Present: CN II-XII intact, oriented X3, no focal deficits. Absent: pronater drift, facial droop, speech deficit - Skin Skin exam: Present: dry, intact Internal Medicine: Result - Labs CBC & Chem 7: 12/11/16 01:59 12/11/16 01:59 - ABG Interpretation ABG results: ABG ABG pH 7.40 pH Units (7.32-7.45) 12/07/16 13:00 ABG pCO2 52 mmHg (35-45) H 12/07/16 13:00 ABG pO2 58 mmHg (85-104) L 12/07/16 13:00 ABG O2 Saturation 90 % (95-98) L 12/07/16 13:00 PT/INR, D-dimer PT 13.3 Seconds (9.4-12.1) H 12/11/16 01:59 Consult Discharge Plan - Plan Referrals: hCarli Zamudio DO [Non-Partnered Physician] - (Pt states she sees Dr. Zamudio at [facility]) NO,PCP [Primary Care Provider] -
[2016-12-12] MEDS: levoFLOXacin 750 MG TABLET PO SCH (16:37)
[2016-12-13] MEDS: methylPREDNISolone 125 MG/2 ML VIAL IVP SCH ×3 (00:20→15:35)
[2016-12-13] MEDS: Ipratropium/Albuterol Neb 3 ML IH SCH ×4 (03:53→15:45)
[2016-12-13] MEDS: *HR* Enoxaparin 40 MG/0.4 ML SYRINGE SQ SCH ×2 (06:24→17:46)
[2016-12-13] MEDS: Budesonide/Formoterol 160/4.5 MDI IH SCH (07:32)
[2016-12-13] MEDS: Aspirin Enteric Coated 81 MG Tablet PO SCH (07:52)
[2016-12-13] MEDS: *HR* LORazepam 0.5 MG TABLET PO SCH ×2 (07:53→15:35)
[2016-12-13] MEDS: Fluticasone Propionate Nasal 50 MCG/SPRAY BOTTLE NS SCH (07:54)
[2016-12-13] MEDS: levoFLOXacin 750 MG TABLET PO SCH (17:13)
--- NOTE | 2016-12-13 17:23 | Discharge Summary ---
Date of Encounter: 12/13/16 Time of Encounter: 17:20 - Discharge Diagnosis (1) COPD with acute exacerbation Priority: Primary Status: Acute (2) Hypomagnesemia Priority: Secondary Status: Acute (3) Community acquired pneumonia Priority: Primary Status: Acute (4) Sepsis Priority: Primary Status: Acute Qualifiers: Sepsis type: Pneumococcus Qualified Code(s): A40.3 - Sepsis due to Streptococcus pneumoniae - Discharge Medications Prescriptions: Ipratropium/Albuterol Neb [Duoneb] 3 ml IH Q6HR #120 inhsol GuaiFENesin ER [Mucinex] 600 mg PO BID #12 tbbp.12hr levoFLOXacin [Levaquin] 750 mg PO Q24H #4 tablet predniSONE [PredniSONE] 10 mg PO DAILY 72 Days Home Medications: Albuterol Sulfate [Ventolin Hfa] 2 puff IH Q4H 08/03/15 [History] Clopidogrel [Plavix] 75 mg PO DAILY 08/03/15 [History] Lansoprazole [Prevacid] 30 mg PO DAILY 08/03/15 [History] Levothyroxine Sodium [Tirosint] 50 mcg PO DAILY 08/03/15 [History] Rosuvastatin [Crestor] 40 mg PO DAILY 08/03/15 [History] Cholecalciferol (Vitamin D3) [Dialyvite Vitamin D] 5,000 unit PO DAILY #30 capsule 08/06/15 [Rx] Oxygen 2 l IN CONT 30 Days 08/06/15 [Rx] Aspirin [Lo-Dose Aspirin EC] 81 mg PO DAILY 12/07/16 [History] Benzonatate [Tessalon] 100 mg PO Q4H PRN 12/07/16 [History] Escitalopram [Lexapro] 20 mg PO DAILY 12/07/16 [History] LORazepam [Ativan] 0.5 mg PO TID 12/07/16 [History] Mometasone/Formoterol [Dulera 200 Mcg/5 Mcg Inhaler] 2 puff IH BID 12/07/16 [ History] GuaiFENesin ER [Mucinex] 600 mg PO BID #12 tbbp.12hr 12/13/16 [Rx] Ipratropium/Albuterol Neb [Duoneb] 3 ml IH Q6HR #120 inhsol 12/13/16 [Rx] levoFLOXacin [Levaquin] 750 mg PO Q24H #4 tablet 12/13/16 [Rx] predniSONE [PredniSONE] 10 mg PO DAILY 72 Days 12/13/16 [Rx] Allergies/Adverse Reactions: Allergies Opioids - Morphine Analogues Allergy (Verified 12/07/16 12:48) See Comments Sulfa (Sulfonamide Antibiotics) Allergy (Verified 07/21/15 11:12) Hives Date of admission: 12/07/16 16:13 Primary care physician: PCP NO Discharging clinician: Yogesh Sandra Anticipated date of discharge: 12/13/16 - Patient Status Disposition: Home, Self-Care Condition: Fair Overall status at discharge: patient is progressing back to baseline - Discharge Instructions Follow Up With: Charli Zamudio DO [Non-Partnered Physician] - (Pt states she sees Dr. Zamudio at [facility]) - Diet and Activity Activity: increase activity as tolerated Diet: advance to your usual diet Hospital course: Ms. Maldonado is a 51 year old female admitted for acute COPD exacerbation and Pseudomonas pneumonia. Chest x-ray showed infiltrates while sputum culture returned with Pseudomonas. She has been treated with Levaquin IV steroid med nebs and Mucinex successfully. She is a smoker and uses 5-1/2 L of oxygen at home. She is advised to quit his smoking and counseling provided. She will follow with her family doctor." - Time Spent with Patient Total time spent providing and/or coordinating discharge services: Greater than 30 minutes - Constitutional Vitals: Temp Pulse Resp BP Pulse Ox 98.2 F 101 18 109/66 89 12/13/16 11:30 12/13/16 11:30 12/13/16 15:46 12/13/16 11:30 12/13/16 15:46 General appearance: Present: cooperative, mild distress, A&O X 3, pleasant, underweight, answers questions appropriately - Head Head exam: Present: atraumatic, normocephalic - Eye Eye exam: Present: PERRL, conjuntiva pink, sclera anicteric Pupils: Present: PERRL - Neck Neck exam general surgery: Present: supple, trachea midline. Absent: lymphadenopathy - Respiratory Respiratory exam: Present: wheezes. Absent: accessory muscle use, rales, rhonchi Additional comments: Scattered wheezing breath sounds have improved no rhonchi patient is on 4 L while at home she takes 5-1/2 later seems very comfortable and has started ambulating - Cardiovascular Cardiovascular exam: Present: RRR, +S1, +S2. Absent: diastolic murmur, gallop, rubs, systolic murmur - GI/Abdominal GI/Abdominal exam: Present: normal bowel sounds, soft, no peritoneal signs. Absent: distended, tenderness - Extremities Exam Extremities exam: Present: warm, radial pulses palpable and symetrical. Absent : calf tenderness, cyanotic, pedal edema - Neurological Exam Neurological exam: Present: CN II-XII intact, oriented X3, no focal deficits. Absent: pronater drift, facial droop, speech deficit - Skin Skin exam: Present: dry, intact
[2016-12-13 17:48] VITALS: BP 113/52
== END 2016-12-13 18:08 | disposition home or self-care (01) | DRG 871 ==
LOC: 2ANU 12:41 → EMEROO 12:41 → 2ANU 15:04
PROVIDERS: ADMIT Nurse Practitioner Family; ATTEND Internal Medicine